=== PATIENT | female | born 1990 | race Caucasian/White ===

== ENCOUNTER 2019-01-06 14:23 | Emergency (ER) | payer OTHER ==
[2019-01-06 14:34] VITALS: BP 117/59; PULSE 86; TEMP 98.5; BMI 21.4
[2019-01-06] MEDS ORDERED: IBUPROFEN 600 MG TABLET (FP) PO ONE ×2 (15:13→15:15)
[2019-01-06] MEDS ORDERED: ACETAMINOPHEN 325 MG TABLET (FP) PO ONE (15:13)
[2019-01-06] MEDS ORDERED: ACETAMINOPHEN 325 MG TABLET (FP) ONE (15:15)
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
== END 2019-01-06 17:50 | disposition home or self-care (01) ==
LOC: JERFT 14:23
DX: R07.9 Chest pain, unspecified (principal); M54.2 Cervicalgia; M25.562 Pain in left knee; M79.632 Pain in left forearm; V49.49XA Driver injured in collision with other motor vehicles in traffic accident, initial encounter; Y92.414 Local residential or business street as the place of occurrence of the external cause; Y93.89 Activity, other specified; Y99.8 Other external cause status
CPT/HCPCS: 71046-TC-FY; 72125-TC; 73090-TC-LT-FY; 73560-TC-RT-FY; 84703; 99281-25